=== PATIENT | female | born 1960 | race Caucasian/White ===

== ENCOUNTER 2016-12-16 08:11 | Day surgery (SDC) | payer OTHER ==
[2016-12-16] MEDS: Lactated Ringer's 500 ML IV ONE (08:33)
[2016-12-16] MEDS ORDERED: Propofol 10 mg/ml Inj (20 ML) ONE ×2 (10:54→11:51)
[2016-12-16 13:18] VITALS: BP 119/72; PULSE 74; RESP 11; TEMP 97.9; O2SAT 99
== END 2016-12-16 13:25 | disposition home or self-care (01) ==
LOC: H.ENDO 08:11
PROVIDERS: ATTEND Internal Medicine Gastroenterology
DX: Z12.11 Encounter for screening for malignant neoplasm of colon (principal); K64.0 First degree hemorrhoids
CPT/HCPCS: 45380; 88305; J2704; J7120

== ENCOUNTER 2017-06-16 16:19 | Observation (INO) | payer BC, OTHER ==
[2017-06-16] MEDS ORDERED: Sodium Chloride 0.9% 1,000 ML IV STA (16:39)
[2017-06-16] MEDS ORDERED: Iohexol 240 (50 ml) PO ONE (16:47)
[2017-06-16] MEDS ORDERED: Iohexol 240 (50 ml) ONE (16:54)
[2017-06-16 17:15] LABS: SQUAMOUS EPITHIAL < 1 /hpf (0-5); URINE BILIRUBIN NEGATIVE (NEGATIVE); URINE BLOOD NEGATIVE (NEGATIVE); URINE CLARITY CLEAR (Clear); URINE COLOR STRAW (YELLOW); URINE GLUCOSE (UA) NEG (Normal); URINE LEUKOCYTE ESTERASE NEG Leu/uL (Negative); URINE PROTEIN NEGATIVE (NEGATIVE); URINE UROBILINOGEN 0.2-1.0 mg/dL (0.2-1.0)
[2017-06-16 17:31] LABS: BASO % 0.4 % (0.0-2.0); EOS # 0.1 K/uL (0.0-0.7); EOS % 1.2 % (0.0-4.0); HEMOGLOBIN 13.7 g/dL (12.0-16.0); LYMPH # 0.9 K/uL (1.0-4.3); LYMPH % 14.8 % (20.0-40.0); MEAN CELL VOLUME 91.9 fl (81.0-99.0); MEAN CORPUSCULAR HEMOGLOBIN 31.2 pg (27.0-31.0); MEAN PLATELET VOLUME 8.3 fl (7.2-11.7); MONO # 0.5 K/uL (0.0-0.8); MONO % 8.7 % (0.0-10.0); NEUT # 4.3 K/uL (1.8-7.0); NEUT % 74.9 % (50.0-75.0); NRBC % 0.1 % (0.0-0.0); RBC 4.38 Mil/uL (3.80-5.20); RED CELL DISTRIBUTION WIDTH 14.6 % (11.5-14.5); WHITE BLOOD COUNT 5.8 K/uL (4.8-10.8)
[2017-06-16 17:35] LABS: ALBUMIN 4.3 g/dL (3.5-5.0); ALT/SGPT 32 U/L (9-52); AST/SGOT 22 U/L (14-36); BLOOD UREA NITROGEN 14 mg/dl (7-17); CALCIUM 9.7 mg/dL (8.4-10.2); GFR AFRICAN-AMERICAN > 60; GFR NON-AFRICAN AMERICAN > 60; LIPASE 191 U/L (23-300)
--- NOTE | 2017-06-16 18:17 | ED PDOC ---
HPI: Abdomen Time Seen by Provider: 06/16/17 16:26 Chief Complaint (Nursing): Abdominal Pain Chief Complaint (Provider): abdominal pain, nausea History Per: Patient History/Exam Limitations: no limitations Onset/Duration Of Symptoms: Hrs (6), Gradual Current Symptoms Are (Timing): Still Present Severity: Moderate Location Of Pain/Discomfort: Other (R flank radiating anterior) Quality Of Discomfort: Burning Associated Symptoms: Nausea, Loss Of Appetite, Back Pain. denies: Vomiting, Diarrhea Exacerbating Factors: None Alleviating Factors: None Last Bowel Movement: Today Additional Complaint(s): 57yo female history significant for recent diagnosis of lupus and intussecption with operative repair fall 2016, presents now with R sided flank and abdominal pain burning in nature since around 11am associated with nausea. Denies fever, urinary symptoms, diarrhea, rash or prior history of similar pain. Past Medical History Reviewed: Historical Data, Nursing Documentation, Vital Signs Vital Signs: Last Vital Signs Temp 97.8 F 06/16/17 16:22 Pulse 90 06/16/17 16:22 Resp 16 06/16/17 16:22 BP 164/93 H 06/16/17 16:22 Pulse Ox 100 06/16/17 22:11 - Medical History PMH: Arthritis (Osteoarthritis), Deep Vein Thrombosis Denies: HIV, Chronic Kidney Disease Other PMH: lupus - Surgical History Surgical History: Cholecystectomy, Tonsillectomy (at 3 years old) Other surgeries: intusseption - Family History Family History: States: Unknown Family Hx - Living Arrangements Living Arrangements: With Family - Social History Current smoker - smoking cessation education provided: No - Home Medications Home Medications: Ambulatory Orders Medication Instructions Recorded Sulfamethoxazole/Trimethoprim 1 tab PO Q12 3 Days #6 tab 01/10/17 [Bactrim DS Tab] Dicyclomine [Dicyclomine HCl] 10 mg PO TID PRN #12 cap 06/16/17 Ondansetron ODT [Zofran ODT] 4 mg PO TID #10 odt 06/16/17 - Allergies Allergies/Adverse Reactions: Allergies Allergy/AdvReac Type Severity Reaction Status Date / Time No Known Allergies Allergy Verified 12/16/16 08:31 Review of Systems Constitutional: Negative for: Fever, Chills, Malaise Cardiovascular: Negative for: Chest Pain Respiratory: Negative for: Cough Gastrointestinal: Positive for: Nausea, Abdominal Pain. Negative for: Diarrhea , Constipation, Melena, Hematochezia, Hematemesis, Rectal Pain Genitourinary Female: Negative for: Dysuria, Hematuria, Pelvic Pain Musculoskeletal: Negative for: Neck Pain Skin: Negative for: Rash, Lesions Neurological: Negative for: Weakness, Numbness, Headache, Dizziness Psych: Negative for: Depression Physical Exam - Reviewed Nursing Documentation Reviewed: Yes Vital Signs Reviewed: Yes - Physical Exam Appears: Positive for: Well, Non-toxic, No Acute Distress Head Exam: Positive for: ATRAUMATIC, NORMAL INSPECTION, NORMOCEPHALIC Skin: Positive for: Normal Color, Warm, DRY Eye Exam: Positive for: EOMI, Normal appearance, PERRL ENT: Positive for: Normal ENT Inspection Neck: Positive for: Normal, Painless ROM Cardiovascular/Chest: Positive for: Regular Rate, Rhythm Respiratory: Positive for: CNT, Normal Breath Sounds Gastrointestinal/Abdominal: Positive for: Bowel Sounds, Soft, Tenderness (R side mild) Back: Positive for: Normal Inspection, R CVA Tenderness (Mild R lumbar/CVA tenderness) Extremity: Positive for: Normal ROM. Negative for: Tenderness Neurologic/Psych: Positive for: Alert, Oriented. Negative for: Motor/Sensory Deficits - Laboratory Results Result Diagrams: 06/16/17 17:20 06/16/17 17:20 - ECG O2 Sat by Pulse Oximetry: 100 Medical Decision Making Medical Decision Making: workup initiated for R sided abd pain, atypical for acute abdomen labs reviewed and unremarkable UA no blood or evidence of infection remained uncomfortable requiring morphine for pain CT: ABDOMEN: Liver: There are small cysts in the liver. Gallbladder and bile ducts: Gallbladder is absent.Common duct is unremarkable. Pancreas: unremarkable Spleen: unremarkable Adrenals: unremarkable Kidneys and ureters: There is a tiny nonobstructing right renal stone.Kidneys and ureters are otherwise unremarkable. Stomach and bowel: Stomach is incompletely distended which accentuates the gastric wall.Bowel rotation is normal. The small bowel is partially opacified with oral contrast. There postsurgical changes with an abnormal anastomosis in the left mid abdomen. There is no obstruction. Appendix and terminal ileum are unremarkable. There is moderate stool in the colon. Appendix: See above. PELVIS: Bladder: unremarkable Reproductive: Uterus is anteflexed. There are multiple calcifications within the uterus. Adnexa are unremarkable. ABDOMEN and PELVIS: Intraperitoneal space: There is no free air or free fluid. Bones/joints: There are degenerative changes in the osseus structures. There are Schmorl's nodes at multiple levels. Soft tissues: There is a very small fat containing umbilical hernia. There is postsurgical scarring in the abdominal wall. Vasculature: Vascular structures are unremarkable. There are multiple phleboliths. Lymph nodes: There is shotty adenopathy. IMPRESSION: Nonobstructing right renal stone, no ureteral stones or hydronephrosis; limited evaluation of renal parenchyma secondary to the lack of intravenous contrast; cholecystectomy, no ductal dilatation; interval partial small bowel resection, no obstruction; no CT findings of appendicitis Additional nonemergent findings as described above. 850p remains uncomfortable w vomiting x4 inability to tolerate PO and discomfort upper abd. additional meds ordered. If no improvement after these medications will place obs for GI eval in am. 10p- wanted to go home but nausea and abd pain returned, appeared pale, presyncoal. Will place Obs for further workup. D/w FP resident 1010pm Disposition - Clinical Impression Clinical Impression: Abdominal pain - Patient ED Disposition Is Patient to be Admitted: No Counseled Patient/Family Regarding: Studies Performed, Diagnosis, Need For Followup, Rx Given - Disposition Referrals: [facility] [Outside] Omid Herrera MD, PhD [Staff Provider] - Disposition: Routine/Home Disposition Time: 22:03 Condition: STABLE Additional Instructions: Drink plenty of fluids. Take medications as directed. Return to ER for any new or worse symptoms. Followup with cardiac/vascular sonographer as directed. Prescriptions: Dicyclomine [Dicyclomine HCl] 10 mg PO TID PRN #12 cap PRN Reason: Gi Distress Ondansetron ODT [Zofran ODT] 4 mg PO TID #10 odt Instructions: Acute Abdomen (Belly Pain), Adult (DC) Forms: [employer] ([place] Citizen)
--- NOTE | 2017-06-16 20:43 | CT ---
EXAM: CT Abdomen and Pelvis With Intravenous Contrast EXAM DATE/TIME: 06/16/2017 4:47 PM CLINICAL HISTORY: 57 years old, female; Pain; Abdominal pain; Flank; Right; Prior surgery; Surgery date: 6+ months; Surgery type: Cholecystectomy. Intusseption; Additional info: R flank pain radiating anterior, lupus TECHNIQUE: Axial computed tomography images of the abdomen and pelvis with intravenous contrast. All CT scans at this facility use one or more dose reduction techniques, viz.: automated exposure control; ma/kV adjustment per patient size (including targeted exams where dose is matched to indication; i.e. head); or iterative reconstruction technique. Coronal and sagittal reformatted images were created and reviewed. COMPARISON: CT - ABD PELVIS PO IV CONTRAST 2017-01-03 00:06 FINDINGS: Lower thorax: Heart size is normal. There is a small hiatal hernia. There is atelectasis/scarring at the lung bases. ABDOMEN: Liver: There are small cysts in the liver. Gallbladder and bile ducts: Gallbladder is absent.Common duct is unremarkable. Pancreas: unremarkable Spleen: unremarkable Adrenals: unremarkable Kidneys and ureters: There is a tiny nonobstructing right renal stone.Kidneys and ureters are otherwise unremarkable. Stomach and bowel: Stomach is incompletely distended which accentuates the gastric wall.Bowel rotation is normal. The small bowel is partially opacified with oral contrast. There postsurgical changes with an abnormal anastomosis in the left mid abdomen. There is no obstruction. Appendix and terminal ileum are unremarkable. There is moderate stool in the colon. Appendix: See above. PELVIS: Bladder: unremarkable Reproductive: Uterus is anteflexed. There are multiple calcifications within the uterus. Adnexa are unremarkable. ABDOMEN and PELVIS: Intraperitoneal space: There is no free air or free fluid. Bones/joints: There are degenerative changes in the osseus structures. There are Schmorl's nodes at multiple levels. Soft tissues: There is a very small fat containing umbilical hernia. There is postsurgical scarring in the abdominal wall. Vasculature: Vascular structures are unremarkable. There are multiple phleboliths. Lymph nodes: There is shotty adenopathy. IMPRESSION: Nonobstructing right renal stone, no ureteral stones or hydronephrosis; limited evaluation of renal parenchyma secondary to the lack of intravenous contrast; cholecystectomy, no ductal dilatation; interval partial small bowel resection, no obstruction; no CT findings of appendicitis Additional nonemergent findings as described above.
[2017-06-16] MEDS ORDERED: Lactated Ringer's 1,000 ML IV ONE (21:04)
--- NOTE | 2017-06-16 23:11 | CP.PCM.HP ---
History of Present Illness - History of Present Illness History of Present Illness: 57 year old female presents to ED with complaints of sharp abdominal pain-right sided, that began earlier this morning with associated nausea and vomiting. She denies any fevers, chills, diarrhea/constipation, changes in bowel habits or recent illness. Vomiting is bilious but non-bloody. Her history is significant for cholecystectomy many years ago and jejunal intussuseption , meckels diverticulum, s/p ex-lap with small bowel resection, DORIS on 01/05/2017. ROS: Admits to nausea, bilious vomiting, abdominal pain now epigastric, upon arrival right sided pain Denies: changes in vision, headaches, neck pain/stiffness, chest pain, dyspnea, changes in bowel habits, bloody diarrhea, radiation of pain. Patient accompanied by her daughter and her . PMD: Dr. Matthews PMH: Discoid lupus, OA, GERD, DVT, Squamous cell CA Past surgical hx: cholecystectomy, knee surgery, small bowel resection Social: Denies etoh.smoking. Illicit drugs Medications: none Allergies: NKDA Present on Admission - Present on Admission Any Indicators Present on Admission: Yes History of DVT/PE: Yes History of Uncontrolled Diabetes: No Review of Systems - Constitutional Constitutional: absent: Chills, Fever, Headache - EENT Eyes: absent: Change in Vision Ears: absent: Dizziness Nose/Mouth/Throat: absent: Nasal Congestion, Nasal Discharge, Neck Pain - Cardiovascular Cardiovascular: absent: Chest Pain, Dyspnea, Dyspnea on Exertion, Edema, Syncope - Respiratory Respiratory: absent: Cough, Dyspnea, Pain on Inspiration - Gastrointestinal Gastrointestinal: Abdominal Pain (epigastric), Vomiting (bilious vomiting). absent: Diarrhea, Dysphagia, Loose Stools - Genitourinary Genitourinary: absent: Difficulty Urinating, Dysuria, Hematuria - Musculoskeletal Musculoskeletal: absent: Neck Pain, Numbness, Tingling Past Patient History - Infectious Disease Hx of Infectious Diseases: None - Past Medical History & Family History Past Medical History?: No - Past Social History Smoking Status: Never Smoked - CARDIAC Hx Angina: No Hx Heart Attack: No Hx Peripheral Vascular Disease: Yes - PULMONARY Hx Respiratory Disorders: No - NEUROLOGICAL Hx Neurological Disorder: No - HEENT Hx HEENT Problems: Yes Other/Comment: Use eyeglasses for reading and distance - RENAL Hx Chronic Kidney Disease: No - ENDOCRINE/METABOLIC Hx Endocrine Disorders: No Hx Systemic Lupus Erythematosus: Yes - HEMATOLOGICAL/ONCOLOGICAL Hx Human Immunodeficiency Virus (HIV): No - INTEGUMENTARY Hx Dermatological Problems: No - MUSCULOSKELETAL/RHEUMATOLOGICAL Hx Arthritis: Yes (Osteoarthritis) - GASTROINTESTINAL Hx Gastrointestinal Disorders: No - GENITOURINARY/GYNECOLOGICAL Hx Genitourinary Disorders: No - PSYCHIATRIC Hx Psychophysiologic Disorder: No Hx Substance Use: No - SURGICAL HISTORY Hx Cholecystectomy: Yes Hx Tonsillectomy: Yes (at 3 years old) - ANESTHESIA Hx Anesthesia: Yes Hx Anesthesia Reactions: No Hx Malignant Hyperthermia: No Meds Allergies/Adverse Reactions: Allergies Allergy/AdvReac Type Severity Reaction Status Date / Time No Known Allergies Allergy Verified 12/16/16 08:31 Physical Exam - Constitutional Appears: In Acute Distress (secondary to severe pain) - Head Exam Head Exam: ATRAUMATIC, NORMAL INSPECTION, NORMOCEPHALIC - Eye Exam Eye Exam: EOMI, Normal appearance, PERRL - Respiratory Exam Respiratory Exam: Clear to Auscultation Bilateral, NORMAL BREATHING PATTERN. absent: Decreased Breath Sounds, Rales, Rhonchi, Wheezes - Cardiovascular Exam Cardiovascular Exam: REGULAR RHYTHM, +S1, +S2 - GI/Abdominal Exam GI & Abdominal Exam: Diminished Bowel Sounds, Soft, Tenderness (epigastric). absent: Distended, Guarding, Hernia, Mass, Rebound, Rigid - Rectal Exam Rectal Exam: Deferred - Extremities Exam Extremities exam: Negative for: pedal edema - Back Exam Back exam: NORMAL INSPECTION. absent: CVA tenderness (L), CVA tenderness (R), rash noted, tenderness - Skin Skin Exam: Dry, Intact, Normal Color Results - Vital Signs Recent Vital Signs: Last Vital Signs Temp 97.8 F 06/16/17 16:22 Pulse 90 06/16/17 16:22 Resp 16 06/16/17 16:22 BP 164/93 H 06/16/17 16:22 Pulse Ox 100 06/16/17 22:13 - Labs Result Diagrams: 06/16/17 17:20 06/16/17 17:20 Labs: Laboratory Results - last 24 hr 06/16/17 06/16/17 06/16/17 17:04 17:20 17:20 WBC 5.8 RBC 4.38 Hgb 13.7 D Hct 40.2 MCV 91.9 D MCH 31.2 H MCHC 34.0 RDW 14.6 H Plt Count 269 D MPV 8.3 Neut % (Auto) 74.9 Lymph % (Auto) 14.8 L [place] % (Auto) 8.7 Eos % (Auto) 1.2 Baso % (Auto) 0.4 Neut # (Auto) 4.3 Lymph # (Auto) 0.9 L [place] # (Auto) 0.5 Eos # (Auto) 0.1 Baso # (Auto) 0.0 Sodium 136 Potassium 4.1 Chloride 98 Carbon Dioxide 26 Anion Gap 16 BUN 14 Creatinine 0.7 Est GFR ( Amer) > 60 Est GFR (Non-Af Amer) > 60 Random Glucose 97 Calcium 9.7 Total Bilirubin 0.5 AST 22 ALT 32 Alkaline Phosphatase 91 Total Protein 8.5 H Albumin 4.3 Globulin 4.1 H Albumin/Globulin Ratio 1.0 Lipase 191 Urine Color Straw Urine Clarity Clear Urine pH 7.0 Ur Specific [place] 1.010 Urine Protein Negative Urine Glucose (UA) Neg Urine Ketones Negative Urine Blood Negative Urine Nitrate Negative Urine Bilirubin Negative Urine Urobilinogen 0.2-1.0 Ur Leukocyte Esterase Neg Urine RBC (Auto) 3 Urine Microscopic WBC 1 Ur Squamous Epith Cells < 1 - Imaging and Cardiology CT scan - abdomen Status: Image reviewed by me, Report reviewed by me Additional comment: VRADS REPORT: FINDINGS: Lower thorax: Heart size is normal. There is a small hiatal hernia. There is atelectasis/scarring at the lung bases. ABDOMEN: Liver: There are small cysts in the liver. Gallbladder and bile ducts: Gallbladder is absent.Common duct is unremarkable. Pancreas: unremarkable Spleen: unremarkable Adrenals: unremarkable Kidneys and ureters: There is a tiny nonobstructing right renal stone.Kidneys and ureters are otherwise unremarkable. Stomach and bowel: Stomach is incompletely distended which accentuates the gastric wall.Bowel rotation is normal. The small bowel is partially opacified with oral contrast. There postsurgical changes with an abnormal anastomosis in the left mid abdomen. There is no obstruction. Appendix and terminal ileum are unremarkable. There is moderate stool in the colon. Appendix: See above. PELVIS: Bladder: unremarkable Reproductive: Uterus is anteflexed. There are multiple calcifications within the uterus. Adnexa are unremarkable. ABDOMEN and PELVIS: Intraperitoneal space: There is no free air or free fluid. Bones/joints: There are degenerative changes in the osseus structures. There are Schmorl's nodes at multiple levels. Soft tissues: There is a very small fat containing umbilical hernia. There is postsurgical scarring in the abdominal wall. Vasculature: Vascular structures are unremarkable. There are multiple phleboliths. Lymph nodes: There is shotty adenopathy. IMPRESSION: Nonobstructing right renal stone, no ureteral stones or hydronephrosis; limited evaluation of renal parenchyma secondary to the lack of intravenous contrast; cholecystectomy, no ductal dilatation; interval partial small bowel resection, no obstruction; no CT findings of appendicitis Additional nonemergent findings as described above. Assessment & Plan (1) Abdominal pain Assessment and Plan: 57 year old female admitted for intractable vomiting and abdominal pain, without fever or leukocytosis. CT revealed : Abnormal anastomosis of left abdomen, no evidence of obstruction or appendicitis, right renal stone-non obstructing. Given her history of ex-lap with small bowel resection and CT findings will place surgical consult -Surgical consult- Dr. Espinoza, awaiting call back from surgery -IVF -Patient requesting maalox, she has bilious vomiting -pain control - morphine -Zofran q4 prn -NPO -repeat BMP in AM Status: Acute (2) Intractable vomiting Assessment and Plan: zofran prn, if not controlled with zofran will try reglan Status: Acute (3) DVT prophylaxis Assessment and Plan: scds for now -awaiting surgical eval, if no plans to take patient to OR will start lovenox given her hx of DVT. Status: Acute
[2017-06-16] MEDS ORDERED: Lactated Ringer's 1,000 ML IV SCH (23:30)
[2017-06-17] MEDS ORDERED: Alum-Mag Hydrox-Simethicone Susp (30 mL) PO ONE (00:49)
[2017-06-17 06:28] LABS: HEMOGLOBIN 12.7 g/dL (12.0-16.0); MEAN CELL VOLUME 92.2 fl (81.0-99.0); MEAN CORPUSCULAR HGB CONC 33.6 g/dL (33.0-37.0); RBC 4.1 Mil/uL (3.80-5.20); RED CELL DISTRIBUTION WIDTH 14.5 % (11.5-14.5); WHITE BLOOD COUNT 6.7 K/uL (4.8-10.8)
[2017-06-17 07:40] LABS: BLOOD UREA NITROGEN 8 mg/dl (7-17); CALCIUM 8.9 mg/dL (8.4-10.2); GFR AFRICAN-AMERICAN > 60; GFR NON-AFRICAN AMERICAN > 60
--- NOTE | 2017-06-17 08:22 | CP.PCM.CON ---
<Gray Tejeda D - Last Filed: 06/17/17 08:15> History of Present Illness - History of Present Illness History of Present Illness: SURGERY CONSULT FOR DR. ESPINOZA 57F presents with pain that began yesterday. Patient states the pain started in the right flank and radiated to the right abdomen. She states the pain was associated with nausea, and multiple bouts of emesis. Vomitus consisted of food she ate and then small amount of bile. She states she was having sweats but denies feeling feverish. She states she was passing gas yesterday andstates her last bowel movement was yesterday before she came in. Pain has resolved overnight and now she feels sore from all the vomiting. PMH: Discoid lupus, OA, GERD, DVT, Squamous CA PSH: cholecystectomy, knee surgery, small bowel resection for intussuception ( found meckels/lipoma at site of resection) Social: Denies tobacco, alcohol, illicit drugs Allergies: NKDA Past Patient History - Infectious Disease Hx of Infectious Diseases: None - Past Medical History & Family History Past Medical History?: No - Past Social History Smoking Status: Never Smoked - CARDIAC Hx Angina: No Hx Heart Attack: No Hx Peripheral Vascular Disease: Yes - PULMONARY Hx Respiratory Disorders: No - NEUROLOGICAL Hx Neurological Disorder: No - HEENT Hx HEENT Problems: Yes Other/Comment: Use eyeglasses for reading and distance - RENAL Hx Chronic Kidney Disease: No - ENDOCRINE/METABOLIC Hx Endocrine Disorders: No Hx Systemic Lupus Erythematosus: Yes - HEMATOLOGICAL/ONCOLOGICAL Hx Human Immunodeficiency Virus (HIV): No - INTEGUMENTARY Hx Dermatological Problems: No - MUSCULOSKELETAL/RHEUMATOLOGICAL Hx Arthritis: Yes (Osteoarthritis) - GASTROINTESTINAL Hx Gastrointestinal Disorders: No - GENITOURINARY/GYNECOLOGICAL Hx Genitourinary Disorders: No - PSYCHIATRIC Hx Psychophysiologic Disorder: No Hx Substance Use: No - SURGICAL HISTORY Hx Cholecystectomy: Yes Hx Tonsillectomy: Yes (at 3 years old) - ANESTHESIA Hx Anesthesia: Yes Hx Anesthesia Reactions: No Hx Malignant Hyperthermia: No Meds Allergies/Adverse Reactions: Allergies Allergy/AdvReac Type Severity Reaction Status Date / Time No Known Allergies Allergy Verified 12/16/16 08:31 - Medications Medications: Current Medications Lactated Ringer's (Lactated Ringer's) 1,000 mls @ 100 mls/hr IV .Q10H [facility] Last Admin: 06/17/17 00:36 Dose: Not Given Morphine Sulfate (Morphine) 1 mg IVP Q4 PRN PRN Reason: Pain, moderate (4-7) Morphine Sulfate (Morphine) 2 mg IVP Q6 PRN PRN Reason: Pain, severe (8-10) Last Admin: 06/17/17 03:55 Dose: 2 mg Ondansetron HCl (Zofran Inj) 4 mg IVP Q6 PRN PRN Reason: Nausea/Vomiting Last Admin: 06/17/17 03:55 Dose: 4 mg Physical Exam - Constitutional Appears: Well, Non-toxic, No Acute Distress, Other Additional comments: tired - Head Exam Head Exam: ATRAUMATIC - Eye Exam Eye Exam: EOMI, PERRL - ENT Exam ENT Exam: Mucous Membranes Moist - Respiratory Exam Respiratory Exam: Clear to Auscultation Bilateral, NORMAL BREATHING PATTERN - Cardiovascular Exam Cardiovascular Exam: REGULAR RHYTHM, +S1, +S2 - GI/Abdominal Exam GI & Abdominal Exam: Soft. absent: Distended, Firm, Guarding, Mass, Rebound, Rigid, Tenderness (currently non tender) - Extremities Exam Extremities exam: Negative for: pedal edema, tenderness - Neurological Exam Neurological exam: Alert, Oriented x3 - Psychiatric Exam Psychiatric exam: Normal Affect, Normal Mood - Skin Skin Exam: Dry, Intact, Normal Color, Warm Results - Vital Signs Recent Vital Signs: Last Vital Signs Temp 98.4 F 06/17/17 08:14 Pulse 78 06/17/17 08:14 Resp 20 06/17/17 08:14 BP 127/82 06/17/17 08:14 Pulse Ox 98 06/17/17 08:14 - Labs Result Diagrams: 06/17/17 05:55 06/17/17 05:55 Labs: Laboratory Results - last 24 hr 06/16/17 06/16/17 06/16/17 17:04 17:20 17:20 WBC 5.8 RBC 4.38 Hgb 13.7 D Hct 40.2 MCV 91.9 D MCH 31.2 H MCHC 34.0 RDW 14.6 H Plt Count 269 D MPV 8.3 Neut % (Auto) 74.9 Lymph % (Auto) 14.8 L [place] % (Auto) 8.7 Eos % (Auto) 1.2 Baso % (Auto) 0.4 Neut # (Auto) 4.3 Lymph # (Auto) 0.9 L [place] # (Auto) 0.5 Eos # (Auto) 0.1 Baso # (Auto) 0.0 Sodium 136 Potassium 4.1 Chloride 98 Carbon Dioxide 26 Anion Gap 16 BUN 14 Creatinine 0.7 Est GFR ( Amer) > 60 Est GFR (Non-Af Amer) > 60 Random Glucose 97 Calcium 9.7 Total Bilirubin 0.5 AST 22 ALT 32 Alkaline Phosphatase 91 Total Protein 8.5 H Albumin 4.3 Globulin 4.1 H Albumin/Globulin Ratio 1.0 Lipase 191 Urine Color Straw Urine Clarity Clear Urine pH 7.0 Ur Specific [place] 1.010 Urine Protein Negative Urine Glucose (UA) Neg Urine Ketones Negative Urine Blood Negative Urine Nitrate Negative Urine Bilirubin Negative Urine Urobilinogen 0.2-1.0 Ur Leukocyte Esterase Neg Urine RBC (Auto) 3 Urine Microscopic WBC 1 Ur Squamous Epith Cells < 1 06/17/17 06/17/17 05:55 05:55 WBC 6.7 RBC 4.10 Hgb 12.7 Hct 37.8 MCV 92.2 MCH 31.0 MCHC 33.6 RDW 14.5 Plt Count 236 MPV Neut % (Auto) Lymph % (Auto) [place] % (Auto) Eos % (Auto) Baso % (Auto) Neut # (Auto) Lymph # (Auto) [place] # (Auto) Eos # (Auto) Baso # (Auto) Sodium 132 Potassium 3.8 Chloride 97 L Carbon Dioxide 25 Anion Gap 14 BUN 8 Creatinine 0.6 L Est GFR ( Amer) > 60 Est GFR (Non-Af Amer) > 60 Random Glucose 112 H Calcium 8.9 Total Bilirubin AST ALT Alkaline Phosphatase Total Protein Albumin Globulin Albumin/Globulin Ratio Lipase Urine Color Urine Clarity Urine pH Ur Specific [place] Urine Protein Urine Glucose (UA) Urine Ketones Urine Blood Urine Nitrate Urine Bilirubin Urine Urobilinogen Ur Leukocyte Esterase Urine RBC (Auto) Urine Microscopic WBC Ur Squamous Epith Cells Assessment & Plan - Assessment and Plan (Free Text) Assessment: 57F presents with abdominal pain. CT: right non-obstructing renal stone Plan: NPO, IVF Anti-emetic, pain control Serial abdominal exams f/u AM labs Discussed with Dr. Olga Tejeda, PGY2 <Eze Espinoza - Last Filed: 06/17/17 14:49> History of Present Illness - History of Present Illness History of Present Illness: Patient was seen and examined at the bedside. Agree with resident's note above. Meds - Medications Medications: Current Medications Enoxaparin Sodium (Lovenox) 40 mg SC DAILY [facility] PRN Reason: Protocol Lactated Ringer's (Lactated Ringer's) 1,000 mls @ 150 mls/hr IV .Q6H40M [facility] Last Admin: 06/17/17 09:11 Dose: 150 mls/hr Morphine Sulfate (Morphine) 1 mg IVP Q4 PRN PRN Reason: Pain, moderate (4-7) Last Admin: 06/17/17 09:18 Dose: 1 mg Morphine Sulfate (Morphine) 2 mg IVP Q6 PRN PRN Reason: Pain, severe (8-10) Last Admin: 06/17/17 03:55 Dose: 2 mg Ondansetron HCl (Zofran Inj) 4 mg IVP Q6 PRN PRN Reason: Nausea/Vomiting Last Admin: 06/17/17 03:55 Dose: 4 mg Results - Vital Signs Recent Vital Signs: Last Vital Signs Temp 98.4 F 06/17/17 08:14 Pulse 78 06/17/17 09:00 Resp 20 06/17/17 08:14 BP 127/72 06/17/17 09:00 Pulse Ox 98 06/17/17 08:14 - Labs Result Diagrams: 06/17/17 05:55 06/17/17 05:55 Labs: Laboratory Results - last 24 hr 06/16/17 06/16/17 06/16/17 17:04 17:20 17:20 WBC 5.8 RBC 4.38 Hgb 13.7 D Hct 40.2 MCV 91.9 D MCH 31.2 H MCHC 34.0 RDW 14.6 H Plt Count 269 D MPV 8.3 Neut % (Auto) 74.9 Lymph % (Auto) 14.8 L [place] % (Auto) 8.7 Eos % (Auto) 1.2 Baso % (Auto) 0.4 Neut # (Auto) 4.3 Lymph # (Auto) 0.9 L [place] # (Auto) 0.5 Eos # (Auto) 0.1 Baso # (Auto) 0.0 Sodium 136 Potassium 4.1 Chloride 98 Carbon Dioxide 26 Anion Gap 16 BUN 14 Creatinine 0.7 Est GFR ( Amer) > 60 Est GFR (Non-Af Amer) > 60 Random Glucose 97 Calcium 9.7 Total Bilirubin 0.5 AST 22 ALT 32 Alkaline Phosphatase 91 Total Protein 8.5 H Albumin 4.3 Globulin 4.1 H Albumin/Globulin Ratio 1.0 Lipase 191 Urine Color Straw Urine Clarity Clear Urine pH 7.0 Ur Specific [place] 1.010 Urine Protein Negative Urine Glucose (UA) Neg Urine Ketones Negative Urine Blood Negative Urine Nitrate Negative Urine Bilirubin Negative Urine Urobilinogen 0.2-1.0 Ur Leukocyte Esterase Neg Urine RBC (Auto) 3 Urine Microscopic WBC 1 Ur Squamous Epith Cells < 1 06/17/17 06/17/17 05:55 05:55 WBC 6.7 RBC 4.10 Hgb 12.7 Hct 37.8 MCV 92.2 MCH 31.0 MCHC 33.6 RDW 14.5 Plt Count 236 MPV Neut % (Auto) Lymph % (Auto) [place] % (Auto) Eos % (Auto) Baso % (Auto) Neut # (Auto) Lymph # (Auto) [place] # (Auto) Eos # (Auto) Baso # (Auto) Sodium 132 Potassium 3.8 Chloride 97 L Carbon Dioxide 25 Anion Gap 14 BUN 8 Creatinine 0.6 L Est GFR ( Amer) > 60 Est GFR (Non-Af Amer) > 60 Random Glucose 112 H Calcium 8.9 Total Bilirubin AST ALT Alkaline Phosphatase Total Protein Albumin Globulin Albumin/Globulin Ratio Lipase Urine Color Urine Clarity Urine pH Ur Specific [place] Urine Protein Urine Glucose (UA) Urine Ketones Urine Blood Urine Nitrate Urine Bilirubin Urine Urobilinogen Ur Leukocyte Esterase Urine RBC (Auto) Urine Microscopic WBC Ur Squamous Epith Cells - Imaging and Cardiology CT scan - abdomen Status: Image reviewed by me, Report reviewed by me Assessment & Plan - Assessment and Plan (Free Text) Plan: - start clear liquid diet - pain control - Iv fluids - Repeat labs in am - No general surgery intervention at present time - Will follow
--- NOTE | 2017-06-17 08:30 | CP.PCM.PN ---
Subjective - Date & Time of Evaluation Date of Evaluation: 06/17/17 Time of Evaluation: 07:20 - Subjective Subjective: Pt seen and evaluated at bedside this morning. Overnight had nausea and multiple episodes of vomiting; received antiemetic and pain medication around 3 am, and no vomiting/reduced pain after that. Denies chest pain, trouble breathing, calf/leg pain. Objective - Vital Signs/Intake and Output Vital Signs (last 24 hours): Temp Pulse Resp BP Pulse Ox 98.4 F 78 20 127/82 98 06/17/17 08:14 06/17/17 08:14 06/17/17 08:14 06/17/17 08:14 06/17/17 08:14 - Medications Medications: Current Medications Lactated Ringer's (Lactated Ringer's) 1,000 mls @ 150 mls/hr IV .Q6H40M [facility] Morphine Sulfate (Morphine) 1 mg IVP Q4 PRN PRN Reason: Pain, moderate (4-7) Morphine Sulfate (Morphine) 2 mg IVP Q6 PRN PRN Reason: Pain, severe (8-10) Last Admin: 06/17/17 03:55 Dose: 2 mg Ondansetron HCl (Zofran Inj) 4 mg IVP Q6 PRN PRN Reason: Nausea/Vomiting Last Admin: 06/17/17 03:55 Dose: 4 mg - Labs Labs: 06/17/17 05:55 06/17/17 05:55 - Constitutional Appears: Other (uncomfortable) - Head Exam Head Exam: NORMAL INSPECTION - ENT Exam ENT Exam: Mucous Membranes Moist - Respiratory Exam Respiratory Exam: Clear to Ausculation Bilateral, NORMAL BREATHING PATTERN. absent: Wheezes, Respiratory Distress - Cardiovascular Exam Cardiovascular Exam: REGULAR RHYTHM, +S1, +S2 - GI/Abdominal Exam GI & Abdominal Exam: Soft, Tenderness (diffusely tender/sore but more on R side) . absent: Distended - Extremities Exam Extremities Exam: absent: Calf Tenderness, Pedal Edema - Neurological Exam Neurological Exam: Alert, Awake, Oriented x3 - Psychiatric Exam Psychiatric exam: Normal Affect, Normal Mood - Skin Skin Exam: Dry, Normal Color, Warm Assessment and Plan - Assessment and Plan (Free Text) Assessment: 57 yo F admitted for intractable vomiting and abdominal pain, which are relieved temporarily with medication. Plan: # Abdominal pain - CT: Abnormal anastomosis of left abdomen, no evidence of obstruction or appendicitis, right renal stone-non obstructing. - Surgical consult- Dr. Espinoza - serial abdominal exams, NPO, IVF; pending further recs - Morphine 1mg Q4 PRN mod pain/ 2mg Q6 PRN severe pain - IVF - NPO # Intractable Vomiting - Zofran q4 PRN # DVT prophylaxis - Lovenox 40 mg SC HS
[2017-06-17] MEDS: Lactated Ringer's 1,000 ML IV SCH ×2 (09:11→22:16)
[2017-06-17] MEDS: Enoxaparin 40 mg Syringe SC SCH (21:32)
[2017-06-17 23:41] VITALS: TEMP 98.3
[2017-06-18] MEDS: Lactated Ringer's 1,000 ML IV SCH ×6 (01:02→17:58)
[2017-06-18 07:13] LABS: BASO % 0.7 % (0.0-2.0); EOS # 0.1 K/uL (0.0-0.7); EOS % 1.8 % (0.0-4.0); HEMOGLOBIN 12.1 g/dL (12.0-16.0); LYMPH # 1.7 K/uL (1.0-4.3); LYMPH % 35.6 % (20.0-40.0); MEAN CELL VOLUME 92.3 fl (81.0-99.0); MEAN CORPUSCULAR HEMOGLOBIN 31.4 pg (27.0-31.0); MEAN PLATELET VOLUME 8.2 fl (7.2-11.7); MONO # 0.6 K/uL (0.0-0.8); MONO % 12.4 % (0.0-10.0); NEUT # 2.3 K/uL (1.8-7.0); NEUT % 49.5 % (50.0-75.0); RBC 3.85 Mil/uL (3.80-5.20); RED CELL DISTRIBUTION WIDTH 14.8 % (11.5-14.5); WHITE BLOOD COUNT 4.7 K/uL (4.8-10.8)
[2017-06-18 07:16] LABS: ALBUMIN 3.3 g/dL (3.5-5.0); ALT/SGPT 35 U/L (9-52); AST/SGOT 17 U/L (14-36); BLOOD UREA NITROGEN 8 mg/dl (7-17); GFR AFRICAN-AMERICAN > 60; GFR NON-AFRICAN AMERICAN > 60
[2017-06-18 08:06] VITALS: RESP 20
[2017-06-18] MEDS: Enoxaparin 40 mg Syringe SC SCH (08:06)
--- NOTE | 2017-06-18 09:05 | CARD ---
APPROVED REPORT EKG Measurement Heart [id number] <Conclusion> Normal sinus rhythm Normal ECG
--- NOTE | 2017-06-18 09:15 | CP.PCM.PN ---
Subjective - Date & Time of Evaluation Date of Evaluation: 06/18/17 Time of Evaluation: 09:14 - Subjective Subjective: SURGERY NOTE FOR DR. PITTS 57F seen and examined at bedside. Patient doing better. Pain controlled. Nausea is controlled with medication. Denies any further vomiting. Tolerating liquid diet. Admits to flatus. Objective - Vital Signs/Intake and Output Vital Signs (last 24 hours): Temp Pulse Resp BP Pulse Ox 98.3 F 73 20 135/85 99 06/18/17 08:06 06/18/17 08:06 06/18/17 08:06 06/18/17 08:06 06/18/17 08:06 - Medications Medications: Current Medications Enoxaparin Sodium (Lovenox) 40 mg SC DAILY ART[facility]IO PRN Reason: Protocol Last Admin: 06/18/17 08:06 Dose: 40 mg Lactated Ringer's (Lactated Ringer's) 1,000 mls @ 150 mls/hr IV .Q6H40M [facility] Last Admin: 06/18/17 05:00 Dose: Not Given Morphine Sulfate (Morphine) 1 mg IVP Q4 PRN PRN Reason: Pain, moderate (4-7) Last Admin: 06/17/17 21:46 Dose: 1 mg Morphine Sulfate (Morphine) 2 mg IVP Q6 PRN PRN Reason: Pain, severe (8-10) Last Admin: 06/18/17 02:39 Dose: 2 mg Ondansetron HCl (Zofran Inj) 4 mg IVP Q6 PRN PRN Reason: Nausea/Vomiting Last Admin: 06/18/17 08:04 Dose: 4 mg - Labs Labs: 06/18/17 06:20 06/18/17 06:20 - Constitutional Appears: Non-toxic, No Acute Distress - Head Exam Head Exam: ATRAUMATIC - Respiratory Exam Respiratory Exam: Clear to Ausculation Bilateral, NORMAL BREATHING PATTERN - Cardiovascular Exam Cardiovascular Exam: REGULAR RHYTHM, +S1, +S2 - GI/Abdominal Exam GI & Abdominal Exam: Soft. absent: Distended, Firm, Guarding, Rigid, Tenderness , Rebound - Neurological Exam Neurological Exam: Alert, Awake - Psychiatric Exam Psychiatric exam: Normal Affect, Normal Mood - Skin Skin Exam: Normal Color, Warm Assessment and Plan - Assessment and Plan (Free Text) Assessment: 57F with resolved right flank/abdominal pain likely from kidney stone Plan: - advance diet to regular - pain control - antiemetic - Serial abdominal exams - No surgery intervention at this time Further recs discuss with Dr. renetta Tejeda, PGY2
--- NOTE | 2017-06-18 12:20 | CP.PCM.DIS ---
Provider - Provider Date of Admission: 06/16/17 22:14 Attending physician: Oralia Samuel MD Primary care physician: Dr. Ty Matthews Consults: General Surgery Time Spent in preparation of Discharge (in minutes): 35 Diagnosis - Discharge Diagnosis (1) Nausea and vomiting Status: Acute Comment: Alleviated with 4mg zofran Q6 PRN. Pt tolerated PO diet. (2) Abdominal pain Status: Resolved Comment: Pt's abdominal pain resolved; has hx of intussusception and has had prior bowel surgery; had CT scan done. Was seen by surgery team and there is no surgical intervention at this time. Hospital Course - Lab Results Lab Results: Most Recent Lab Values WBC 4.7 K/uL (4.8-10.8) L 06/18/17 06:20 RBC 3.85 Mil/uL (3.80-5.20) 06/18/17 06:20 Hgb 12.1 g/dL (12.0-16.0) 06/18/17 06:20 Hct 35.5 % (34.0-47.0) 06/18/17 06:20 MCV 92.3 fl (81.0-99.0) 06/18/17 06:20 MCH 31.4 pg (27.0-31.0) H 06/18/17 06:20 MCHC 34.0 g/dL (33.0-37.0) 06/18/17 06:20 RDW 14.8 % (11.5-14.5) H 06/18/17 06:20 Plt Count 234 K/uL (130-400) 06/18/17 06:20 MPV 8.2 fl (7.2-11.7) 06/18/17 06:20 Neut % (Auto) 49.5 % (50.0-75.0) L 06/18/17 06:20 Lymph % (Auto) 35.6 % (20.0-40.0) 06/18/17 06:20 [place] % (Auto) 12.4 % (0.0-10.0) H 06/18/17 06:20 Eos % (Auto) 1.8 % (0.0-4.0) 06/18/17 06:20 Baso % (Auto) 0.7 % (0.0-2.0) 06/18/17 06:20 Neut # (Auto) 2.3 K/uL (1.8-7.0) 06/18/17 06:20 Lymph # (Auto) 1.7 K/uL (1.0-4.3) 06/18/17 06:20 [place] # (Auto) 0.6 K/uL (0.0-0.8) 06/18/17 06:20 Eos # (Auto) 0.1 K/uL (0.0-0.7) 06/18/17 06:20 Baso # (Auto) 0.0 K/uL (0.0-0.2) 06/18/17 06:20 Sodium 140 mmol/l (132-148) 06/18/17 06:20 Potassium 4.0 MMOL/L (3.6-5.0) 06/18/17 06:20 Chloride 103 mmol/L (98-107) 06/18/17 06:20 Carbon Dioxide 27 mmol/L (22-30) 06/18/17 06:20 Anion Gap 14 (10-20) 06/18/17 06:20 BUN 8 mg/dl (7-17) 06/18/17 06:20 Creatinine 0.7 mg/dl (0.7-1.2) 06/18/17 06:20 Est GFR ( Amer) > 60 06/18/17 06:20 Est GFR (Non-Af Amer) > 60 06/18/17 06:20 Random Glucose 82 mg/dL (65-105) 06/18/17 06:20 Calcium 9.0 mg/dL (8.4-10.2) 06/18/17 06:20 Total Bilirubin 0.6 mg/dl (0.2-1.3) 06/18/17 06:20 AST 17 U/L (14-36) 06/18/17 06:20 ALT 35 U/L (9-52) 06/18/17 06:20 Alkaline Phosphatase 65 U/L (38-126) 06/18/17 06:20 Total Protein 6.5 G/DL (6.3-8.2) 06/18/17 06:20 Albumin 3.3 g/dL (3.5-5.0) L D 06/18/17 06:20 Globulin 3.2 gm/dL (2.2-3.9) 06/18/17 06:20 Albumin/Globulin Ratio 1.0 (1.0-2.1) 06/18/17 06:20 Lipase 191 U/L (23-300) 06/16/17 17:20 Urine Color Straw (YELLOW) 06/16/17 17:04 Urine Clarity Clear (Clear) 06/16/17 17:04 Urine pH 7.0 (5.0-8.0) 06/16/17 17:04 Ur Specific [place] 1.010 (1.003-1.030) 06/16/17 17:04 Urine Protein Negative mg/dL (NEGATIVE) 06/16/17 17:04 Urine Glucose (UA) Neg mg/dL (Normal) 06/16/17 17:04 Urine Ketones Negative mg/dL (NEGATIVE) 06/16/17 17:04 Urine Blood Negative (NEGATIVE) 06/16/17 17:04 Urine Nitrate Negative (NEGATIVE) 06/16/17 17:04 Urine Bilirubin Negative (NEGATIVE) 06/16/17 17:04 Urine Urobilinogen 0.2-1.0 mg/dL (0.2-1.0) 06/16/17 17:04 Ur Leukocyte Esterase Neg Mary/uL (Negative) 06/16/17 17:04 Urine RBC (Auto) 3 /hpf (0-3) 06/16/17 17:04 Urine Microscopic WBC 1 /hpf (0-5) 06/16/17 17:04 Ur Squamous Epith Cells < 1 /hpf (0-5) 06/16/17 17:04 - Hospital Course Hospital Course: 57 yo F with PMH discoid lupus, OA, GERD, DVT, squamous cell ca, presented to hospital with abdominal pain and nausea/vomitting. Pt also has hx intussuception /ex-lap in 12/2016, CT showed possible abnormal anastamosis- surgery was consulted but after seeing/evaluating the pt and records, stated no surgical intervention at this time. Pt's pain was controlled with pain medication, and her nausea/vomiting were controlled by anti-emetics. She tolerated liquid, followed by soft, regular diet. She will be discharged with prescription for antiemetic zofran as needed, for 5-7 days. She has a hx of GERD but is not currently on PPI, states she occasionally has acid reflux symptoms and was experiencing some prior to the vomiting that started before she presented to the ED. Took prilosec in the past with good results, but does not take it regularly. She will be discharged with a prescription for prilosec, and will discuss further need for PPI with her PMD. At this time, patient is stable for discharge. Discharge Exam - Head Exam Head Exam: ATRAUMATIC - Eye Exam Eye Exam: EOMI, Normal appearance - ENT Exam ENT Exam: Mucous Membranes Moist - Respiratory Exam Respiratory Exam: Clear to PA & Lateral, NORMAL BREATHING PATTERN, UNREMARKABLE. absent: Wheezes, Respiratory Distress - Cardiovascular Exam Cardiovascular Exam: REGULAR RHYTHM, +S1, +S2 - GI/Abdominal Exam GI & Abdominal Exam: Normal Bowel Sounds, Soft, Unremarkable. absent: Tenderness - Extremities Exam Extremities exam: normal capillary refill Additional comments: varicose veins, chronic no calf tenderness/swelling - Neurological Exam Neurological exam: Alert, Oriented x3 - Skin Skin Exam: Dry, Intact, Normal Color, Warm Discharge Plan - Discharge Medications Prescriptions: Omeprazole Magnesium [Prilosec Otc] 20 mg PO DAILY #14 tablet. Ondansetron HCl [Zofran] 4 mg PO Q6 PRN #20 tablet PRN Reason: Nausea/Vomiting - Follow Up Plan Condition: STABLE Disposition: HOME/ ROUTINE Instructions: Nausea and Vomiting, Adult (DC), Gastritis (DC) Additional Instructions: Stay hydrated; drink plenty of fluids; eat slowly and avoid heavy, spicy, citrusy foods. Avoid taking advil/motrin and other NSAIDS. You can take OTC tylenol for pain. Prescription for zofran and prilosec sent to [facility]. Please take as directed and discuss further prescriptions and/or refills with PMD. Return to ED if symptoms worsen/are unrelenting. Referrals: Ty Matthews MD [Family Provider] - 06/24/17 5:00 pm
[2017-06-18 16:09] VITALS: BP 109/61; PULSE 74; O2SAT 98
== END 2017-06-18 18:10 | disposition home or self-care (01) ==
LOC: H.ER 16:19 → H.ERHOLD 22:14 → H.MEDSURG1 06-17 00:26
PROVIDERS: ADMIT Family Medicine Geriatric Medicine; ATTEND Family Medicine Geriatric Medicine
DX: R11.2 Nausea with vomiting, unspecified (principal); R10.9 Unspecified abdominal pain; L93.0 Discoid lupus erythematosus; M19.90 Unspecified osteoarthritis, unspecified site; I73.9 Peripheral vascular disease, unspecified; K21.9 Gastro-esophageal reflux disease without esophagitis; N20.0 Calculus of kidney; Z86.718 Personal history of other venous thrombosis and embolism
CPT/HCPCS: 36415; 74176; 80048; 80053; 81003; 83690; 85025; 85027; 93005; 96360; 96361; 96374; 99283; G0378; J1650; J1885; J2270; J2405; J2765; J7040; J7120; Q9966

== ENCOUNTER 2017-08-17 01:27 | Emergency (ER) | payer OTHER ==
[2017-08-17] MEDS ORDERED: Sodium Chloride 0.9% 1,000 ML IV SCH (02:00)
--- NOTE | 2017-08-17 02:05 | ED PDOC ---
HPI: Abdomen Chief Complaint (Provider): nausea, vomiting, abdominal pain History Per: Patient History/Exam Limitations: no limitations Onset/Duration Of Symptoms: Hrs Outside of [place] travel?: No Current Symptoms Are (Timing): Constant Severity: Severe Pain Scale Rating Of: 10 Location Of Pain/Discomfort: RUQ, Epigastric Quality Of Discomfort: Cramping Associated Symptoms: Chills, Nausea, Vomiting. denies: Fever, Diarrhea, Constipation, Urinary Symptoms Exacerbating Factors: Supine, Movement. denies: Cough Alleviating Factors: None Last Bowel Movement: Today (soft) Additional History Per: Patient <Perlita Villavicencio - Last Filed: 08/17/17 06:02> <Salomón Ayala - Last Filed: 08/19/17 20:03> Chief Complaint (Nursing): Abdominal Pain Additional Complaint(s): 57 yr old F presents to ED with complaint of severe abdominal pain, multiple episodes of nonbilious/nonbloody emesis and epigastric pain since this AM. PMHx includes intussusception s/p bowel resection in Dec 2016, anxiety, recently diagnosed Lupus. Patient reports this pain is not similar to the pain she experienced with the intussusception. Pain is located in epigastric area, 10/10 , crampy, not alleviated by anything, exacerbated by laying down. Associated symptoms are chills. Denies dysuria, hematuria, cough, fevers, chest pain or diarrhea. Had a soft bowel movement today. Today took Mylanta, Prilosec and hussain -seltzer without relief. PMD: Dr. Matthews SurgHx: cholecystectomy, bowel resection, tonsillectomy (Perlita Villavicencio) Supervising Attending Note - Supervising Attending Note The Documented history was done by the: Physician Complaint Adjuster The documented physical exam was done by the: Physician Complaint Adjuster - Attestation: I have personally seen and examined this patient.: Yes I have fully participated in the care of the patient.: Yes I have reviewed all pertinent clinical information: Yes <Salomón Ayala - Last Filed: 08/19/17 20:03> Past Medical History - Medical History PMH: Arthritis (Osteoarthritis), Deep Vein Thrombosis Denies: HIV, Chronic Kidney Disease - Surgical History Surgical History: Cholecystectomy, Tonsillectomy (at 3 years old) - Family History Family History: States: Unknown Family Hx - Living Arrangements Living Arrangements: With Family - Social History Current smoker - smoking cessation education provided: No Ex-Smoker (has not smoked in the last 12 months): No Alcohol: None Drugs: Denies <Perlita Villavicencio - Last Filed: 08/17/17 06:02> <Salomón Ayala - Last Filed: 08/19/17 20:03> Vital Signs: Last Vital Signs Temp 98.2 F 08/17/17 06:27 Pulse 82 08/17/17 06:27 Resp 18 08/17/17 06:27 BP 118/74 08/17/17 06:27 Pulse Ox 99 08/17/17 06:27 - Home Medications Home Medications: Ambulatory Orders Medication Instructions Recorded Omeprazole Magnesium [Prilosec Otc] 20 mg PO DAILY #14 tablet. 06/18/17 Ondansetron HCl [Zofran] 4 mg PO Q6 PRN #20 tablet 06/18/17 Ondansetron ODT [Zofran ODT] 4 mg PO Q6 PRN #16 odt 08/17/17 Promethazine [Phenergan Syrup] 12.5 mg PO Q6 PRN #4 oz 08/17/17 - Allergies Allergies/Adverse Reactions: Allergies Allergy/AdvReac Type Severity Reaction Status Date / Time No Known Allergies Allergy Verified 08/17/17 01:43 Review of Systems Constitutional: Positive for: Chills. Negative for: Fever Eyes: Negative for: Vision Change, Eyelid Inflammation ENT: Negative for: Nose Discharge, Nose Congestion, Throat Pain Cardiovascular: Negative for: Chest Pain, Palpitations, Light Headedness Respiratory: Negative for: Cough, Shortness of Breath, Wheezing Gastrointestinal: Positive for: Nausea, Vomiting, Abdominal Pain (epigastric). Negative for: Diarrhea Genitourinary Female: Negative for: Dysuria, Frequency Musculoskeletal: Negative for: Neck Pain, Shoulder Pain, Arm Pain Skin: Negative for: Rash, Lesions Neurological: Negative for: Weakness, Altered Mental Status, Headache, Dizziness Psych: Positive for: Anxiety <Perlita Villavicencio - Last Filed: 08/17/17 06:02> Physical Exam - Physical Exam Appears: Positive for: Uncomfortable Head Exam: Positive for: ATRAUMATIC, NORMOCEPHALIC Skin: Positive for: Normal Color, Warm, Dry Eye Exam: Positive for: EOMI, PERRL ENT: Negative for: Pharyngeal Erythema, Tonsillar Exudate Neck: Positive for: Painless ROM, Supple Cardiovascular/Chest: Positive for: Regular Rate, Rhythm. Negative for: Gallop , Murmur Respiratory: Positive for: Normal Breath Sounds. Negative for: Crackles, Rales , Rhonchi Pulses-Carotid (L): 2+ Pulses-Carotid (R): 2+ Pulses-Radial (L): 2+ Pulses-Radial (R): 2+ Gastrointestinal/Abdominal: Positive for: Bowel Sounds (present), Soft, Tenderness (epigastric and RUQ). Negative for: Mass, Distended Back: Negative for: L CVA Tenderness, R CVA Tenderness Extremity: Positive for: Normal ROM. 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 Negative for: Motor/Sensory Deficits <Perlita Villavicencio - Last Filed: 08/17/17 06:02> - Laboratory Results Result Diagrams: 08/17/17 03:15 08/17/17 03:15 - ECG O2 Sat by Pulse Oximetry: 99 <Perlita Villavicencio - Last Filed: 08/17/17 06:02> - Laboratory Results Result Diagrams: 08/17/17 03:15 08/17/17 03:15 <Salomón Ayala - Last Filed: 08/19/17 20:03> - Progress ED Course And Treament: -CBC w/diff: wnl -CMP: K 3.5, Cl 97, anion gap 22 -Udip: -Lipase: wnl -1L NS IV bolus -Protonix 40mg IV once, Zofran 8mg ODT -imaging deferred at this moment as patient reports this pain is not like prior abd pain during intussusception and patient had 4 Abd/Pelvis CT within last year -03:30 Patient reports symptoms have improved, but remain -Promethazine 25mg IV and Diphenhydramine 25mg IV ordered -5:50 Patient reports further improvement in abdominal pain, remained afebrile with normal vital signs (Perlita Villavicencio) Disposition - Patient ED Disposition Is Patient to be Admitted: No Counseled Patient/Family Regarding: Diagnosis, Need For Followup, Rx Given - Disposition Disposition Time: 05:59 <Perlita Villavicencio - Last Filed: 08/17/17 06:02> <Salomón Ayala - Last Filed: 08/19/17 20:03> - Clinical Impression Clinical Impression: Abdominal pain - Disposition Condition: STABLE Additional Instructions: -Follow up with your PMD within 1-2days -ER precautions reviewed, return to ED if symptoms worsen or persist Prescriptions: Ondansetron ODT [Zofran ODT] 4 mg PO Q6 PRN #16 odt PRN Reason: Nausea/Vomiting Promethazine [Phenergan Syrup] 12.5 mg PO Q6 PRN #4 oz PRN Reason: Nausea/Vomiting Instructions: Stomach Ache and Stomach Upset Forms: [facility] (Greek)
[2017-08-17 03:23] LABS: BASO % 0.5 % (0.0-2.0); HEMOGLOBIN 14.3 g/dL (12.0-16.0); LYMPH # 0.6 K/uL (1.0-4.3); LYMPH % 8.3 % (20.0-40.0); MEAN CELL VOLUME 91.8 fl (81.0-99.0); MEAN CORPUSCULAR HEMOGLOBIN 32.1 pg (27.0-31.0); MEAN PLATELET VOLUME 8.8 fl (7.2-11.7); MONO # 0.4 K/uL (0.0-0.8); MONO % 5.9 % (0.0-10.0); NEUT # 6.5 K/uL (1.8-7.0); NEUT % 85.3 % (50.0-75.0); NRBC % 0.1 % (0.0-0.0); PLATELET COUNT 312 K/uL (130-400); RBC 4.45 Mil/uL (3.80-5.20); RED CELL DISTRIBUTION WIDTH 13.3 % (11.5-14.5); WHITE BLOOD COUNT 7.6 K/uL (4.8-10.8)
[2017-08-17 03:36] LABS: ALB/GLOB RATIO 1.1 (1.0-2.1); ALBUMIN 4.8 g/dL (3.5-5.0); ALT/SGPT 41 U/L (9-52); AST/SGOT 33 U/L (14-36); BLOOD UREA NITROGEN 14 mg/dl (7-17); CALCIUM 10.7 mg/dL (8.4-10.2); GFR AFRICAN-AMERICAN > 60; GFR NON-AFRICAN AMERICAN > 60; LIPASE 39 U/L (23-300)
[2017-08-17] MEDS ORDERED: DiphenhydrAMINE 50 mg/ml Inj IV STA (04:26)
[2017-08-17] MEDS ORDERED: Promethazine 25 MG in Sodium Chloride 0.9% 100 ML IVPB STA (04:32)
[2017-08-17 05:03] LABS: LYMPHOCYTE 3 % (20-50); MONOCYTE 8 % (0-10); NEUTROPHIL 86 % (42-75); PLATELET ESTIMATE NORMAL (NORMAL); REACTIVE LYMPHOCYTES 3 % (0-0); TOTAL CELLS COUNTED 100
[2017-08-17 05:58] VITALS: O2SAT 99
[2017-08-17 06:29] VITALS: BP 118/74; PULSE 82; RESP 18; TEMP 98.2
== END 2017-08-17 06:10 | disposition home or self-care (01) ==
LOC: H.ER 01:27
DX: R10.9 Unspecified abdominal pain (principal); R11.2 Nausea with vomiting, unspecified; Z86.718 Personal history of other venous thrombosis and embolism
CPT/HCPCS: 80053; 83690; 85025; 96374; 96375; 99284; C9113; J1200; J2270; J2550; J7040